=== PATIENT | female | born 1960 | race Caucasian/White ===

== ENCOUNTER → 2017-01-01 | Outpatient (CLI) | payer OTHER ==
--- NOTE | 2017-01-01 12:19 | REP ---
Digital screening bilateral mammography with CAD: History: Personal history of breast carcinoma on the left at age 39 status post left breast reconstruction and right breast reduction mammoplasty. Comparison mammography December 24, 2015, January 08, 2015, and October 19, 2013. Mammographic findings: There is silicone augmentation implant again noted in the left breast with smooth margins. There is some contour deformity but these features are unchanged. There is a surgical clip adjacent to the superior aspect of the implant. The left breast is otherwise unremarkable mammographically. The right breast shows mild pattern of background fibroglandular tissue unchanged from comparison mammography. No neodensity, spiculation or architectural distortion is seen. No suspicious microcalcification is seen. Impression: Stable BIRADS category II benign bilateral breast imaging. Repeat screening mammography recommended in 1 year. BI-RADS/ACR category 2 mammogram. Benign finding(s). Routine annual screening mammography (for women over age 40). This mammogram was interpreted with the aid of an FDA-approved computer-aided detection system. The patient states she had a clinical breast exam in December 2016. The patient letter being requested is M1.
== END ==
LOC: M WHC 09:54
PROVIDERS: ATTEND Nurse Practitioner Family
DX: Z12.31 Encounter for screening mammogram for malignant neoplasm of breast (principal); Z85.3 Personal history of malignant neoplasm of breast

== ENCOUNTER → 2017-01-01 | Outpatient (CLI) | payer OTHER ==
--- NOTE | 2017-01-04 09:39 | DEXA ---
AP SPINE L1 - L4 1.034 -1.3 -1.4 LT FEMUR TOTAL 0.982 -0.2 -0.2 RT FEMUR TOTAL 0.952 -0.4 -0.4 TOTAL BODY TOTAL OTHER DUAL FEMUR FRAX* ASSESSMENT Risk factors: History of fracture (adult.) Secondary osteoporosis ( premature menopause.) 10 year probability of fracture Major osteoporotic fracture 9.5 % Hip fracture 0.3 % COMMENTS: Normal bone densitometry of the hips. There is low bone density of the spine. The density of the spine has decreased 12.4% since initial exam on 03/19/2006. The spine density has increased 0.6% since the most recent exam on 01/08/2015. The density of the left hip has decreased 8.9% since the initial exam on 2005. The density of the left hip has decreased 2.9% since the most recent exam on . The density of the right hip has decreased 10.5% since the initial exam on 03/19. The density of the right hip has decreased 2.3% since the most recent exam on . FOLLOW-UP: Recommendation for the next bone density exam: 2 years. CASSIE
== END ==
LOC: M WHC 09:57
PROVIDERS: ATTEND Internal Medicine
DX: M81.8 Other osteoporosis without current pathological fracture (principal)

== ENCOUNTER → 2017-12-31 | Outpatient (REF) | payer OTHER ==
[2017-12-31 14:26] LABS: CA15-3 ANTIGEN 15.9 U/ML (<32.4)
== END ==
LOC: M LAB REF 12:40
DX: C50.919 Malignant neoplasm of unspecified site of unspecified female breast (principal)

== ENCOUNTER → 2018-02-14 | Outpatient (CLI) | payer OTHER | LOC: M WHC 11:30 | DX: Z12.31 Encounter for screening mammogram for malignant neoplasm of breast (principal); Z85.3 Personal history of malignant neoplasm of breast | CPT/HCPCS: 77067 ==

== ENCOUNTER → 2018-11-23 | Outpatient (CLI) | payer OTHER ==
[~2018-11-23] MED LIST: ATOR40TA75 PO; CALC500C16 PO; CALC500T49 PO; COQ1200C3 PO
--- NOTE | 2018-11-23 15:25 | REP ---
Digital diagnostic unilateral right breast mammography with CAD and focused right breast sonography: History: Right breast lump. Comparison mammography February 14, 2018, January 01, 2017, and December 24, 2015. Mammographic findings: A skin marker is affixed to the skin at the site of the palpable lump and routine views of the right breast are augmented by true ML and magnified views. These demonstrate the breast parenchyma remains heterogeneously dense in a pattern which may inhibit the sensitivity of mammography. Parenchyma is unchanged. No abnormal soft tissue density is seen in the area of the palpable lump. The breast parenchyma in this region is fatty replaced. No spiculation, mass, architectural distortion or microcalcification is seen. Sonographic findings: The right breast is scanned from 3 o'clock to 5 o'clock through the region of the palpable lump. Mildly heterogeneous fibroglandular background echotexture is seen. No cyst or mass is observed. No acoustic shadowing is seen. Impression: BIRADS category 1 negative right breast imaging findings. Clinical follow-up is advised. This negative report should not dissuade one from biopsy of a palpable lump depending on its clinical characteristics. BIRADS 1: BI-RADS/ACR category 1 mammogram. Negative Mammogram. This mammogram was interpreted with the aid of an FDA-approved computer-aided detection system. The patient states she had a clinical breast exam in November 2018. The patient letter being requested is m# 2. Electronically Signed by Alexy Linda MD 11/23/2018 05:31 P
== END ==
LOC: M RAD 10:20
PROVIDERS: ATTEND Internal Medicine Hematology & Oncology
DX: N60.31 Fibrosclerosis of right breast (principal)
CPT/HCPCS: 76642; 77065; G0279

== ENCOUNTER 2021-02-12 02:51 | Observation (INO) | payer OTHER ==
[~2021-02-12] VITALS: Ht 170.2 cm; Wt 93.0 kg
[~2021-02-12 02:51] MED LIST changes: +FISH1000 PO
[2021-02-12 03:56] LABS: BASO # 0.1 10^3/uL (0.0-0.2); BASO % 0.8 % (0.0-1.0); EOS # 0.2 10^3/uL (0.0-0.5); EOS % 2.3 % (0.0-3.0); HEMATOCRIT 40.7 % (36.0-47.0); HEMOGLOBIN 13.2 g/dl (12.0-15.5); LYMPH % 48.2 % (24.0-44.0); MEAN CORPUSCULAR HEMOGLOBIN 28.9 pg (27.0-33.0); MEAN CORPUSCULAR HGB CONC 32.4 g/dl (32.0-36.5); MEAN CORPUSCULAR VOLUME 89.1 fl (80.0-96.0); MONO # 0.8 10^3/uL (0.0-0.8); MONO % 7.9 % (2.0-8.0); NEUTROPHILS % 39.2 % (36.0-66.0); PLATELET COUNT, AUTOMATED 224 10^3/uL (150-450); RED BLOOD COUNT 4.57 10^6/uL (4.00-5.40)
[2021-02-12 03:57] LABS: WHITE BLOOD COUNT 10.3 10^3/uL (4.0-10.0)
[2021-02-12 04:09] LABS: ALBUMIN 3.8 GM/DL (3.2-5.2); ALT/SGPT 54 U/L (12-78); BILIRUBIN,DIRECT < 0.1 MG/DL (0.0-0.2); BILIRUBIN,TOTAL 0.3 MG/DL (0.2-1.0); LIPASE 147 U/L (73-393)
[2021-02-12] MEDS ORDERED: ONDANSETRON 4MG/2ML VIAL IV ONE (06:30)
[2021-02-12] MEDS ORDERED: NS 1,000 ML IV ONE (06:30)
[2021-02-12 06:49] LABS: ETHYL ALCOHOL (ETHANOL) < 0.003 % (0.000-0.010)
--- NOTE | 2021-02-12 07:28 | REPVR ---
PROCEDURE INFORMATION: Exam: CT Head Without Contrast Exam date and time: 02/12/2021 6:30 AM Age: 60 years old Clinical indication: Dizziness; Additional info: Dizziness, vomiting TECHNIQUE: Imaging protocol: Computed tomography of the head without contrast. Radiation optimization: All CT scans at this facility use at least one of these dose optimization techniques: automated exposure control; mA and/or kV adjustment per patient size (includes targeted exams where dose is matched to clinical indication); or iterative reconstruction. COMPARISON: No relevant prior studies available. FINDINGS: Brain: There is no acute intracranial hemorrhage or mass effect. Mild diffuse volume loss is within the range of normal for patient age. There are small vessel ischemic changes within the periventricular and subcortical white matter, but the normal choudhary/white matter delineation is maintained. Cerebral ventricles: No ventriculomegaly. Paranasal sinuses: Visualized sinuses are unremarkable. No fluid levels. Mastoid air cells: Visualized mastoid air cells are well aerated. Bones/joints: Unremarkable. No acute fracture. Soft tissues: Unremarkable. IMPRESSION: No acute hemorrhage or edema. Electronically signed by: Deneen Li On 02/12/2021 07:27:59 AM
[2021-02-12 08:39] LABS: AMPHETAMINES LEVEL URINE NEGATIVE (NEGATIVE); BARBITURATES URINE NEGATIVE (NEGATIVE); BENZODIAZEPINES URINE NEGATIVE (NEGATIVE); CANNABINOIDS URINE NEGATIVE (NEGATIVE); COCAINE METABOLITE URINE NEGATIVE (NEGATIVE); METHADONE URINE NEGATIVE (NEGATIVE); OPIATES URINE NEGATIVE (NEGATIVE); PHENCYCLIDINE URINE NEGATIVE (NEGATIVE)
[2021-02-12] MEDS ORDERED: ACETAMINOPHEN 500 MG TAB PO ONE (09:20)
[2021-02-12] MEDS ORDERED: METOCLOPRAMIDE INJ 10MG/2ML VIAL (J2765 PER 1) IV ONE (10:00)
--- NOTE | 2021-02-12 13:49 | HPEPDOC ---
[facility] Medical History & Physical Date of Admission Feb 12, 2021 Date of Service: Feb 12, 2021 History and Physical CHIEF COMPLAINT: Dizziness HISTORY OF PRESENT ILLNESS: 60-year-old female history of hyperlipidemia who presents with a three-week history of dizziness associated with nausea and vomiting. Tells me over the past 3 weeks symptoms were mild they were triggered by lying down in bed especially on the left side as well as rising too quickly from bed and rolling over to the left side. peak of the symptoms stents last for a few minutes and then was away it feels as though the room was spinning she feels unsteady as though the room is spinning and worried about falling and its associated with nausea and v omiting. She felt her symptoms were worse over the past 24 hours which prompted her to come to the ED. She tells me although she doesn't remember herself her reminds her that she has had similar symptoms as far back as 20-30 years ago. In the emergency department physical therapy vestibular therapy specialist saw the patient performed Hawkins-Hallpike maneuver and noted horizontal nystagmus on left side Richi maneuver was attempted patient felt a little better but was also nauseous she was given Reglan with improvement of her symptoms. Neurologist supervisor stone was contacted and recommended patient be observed with another session with vestibular therapy as well as continued vestibular therapy in the outpatient setting regimented meclizine and Valium. PAST MEDICAL/SURGICAL HISTORY: Hyperlipidemia Remote history of breast cancer follows annually with the breast center Left mastectomy with reconstruction expanders in place Hysterectomy SOCIAL HISTORY: Endorses alcohol use socially only Denies tobacco use Denies illicit drug use FAMILY HISTORY: Reviewed and none contributory to this admission ALLERGIES: Please see below. REVIEW OF SYSTEMS: 10 point review of systems complete all negative otherwise stated in HPI Denies dysuria. Endorses urinary frequency. HOME MEDICATIONS: Please see below. PHYSICAL EXAMINATION: Constitutional: Awake and alert, in no apparent distress ENT: Sclera are clear. Mucosa is moist. Respiratory: Lungs CTA bilaterally. No respiratory distress. Cardiovascular: Regular rate and rhythm Gastrointestinal: Abdomen is soft, non distended, non tender, BS present. Musculoskeletal: No lower extremity edema. Skin: No visible rashes mental status: The patient is awake, alert, oriented to name, location, and date. Cranial nerves: Pupils are equal, round, and reactive to light. Extraocular muscles intact. Visual killian full bilaterally. Smile is symmetrical. Tongue is midline. Intact sensation on both sides of face. Motor: At least 4+/5 in both upper and lower extremities without any drifting. Sensory: Intact to sensation bilaterally. Reflexes: Symmetrical, non-hyperreflexic. Not pathological. Gait reported to be unstable, I did not test this LABORATORY DATA: See below. IMAGING: See chart MICROBIOLOGY: Please see below. ASSESSMENT/PLAN 6-year-old female history of hyperlipidemia presents with a three-week history of intermittent dizziness associated with positioning as well as nausea and vomiting suspected to have benign paroxysmal positional vertigo admitted for observation for vestibular therapy and medical management of symptoms. # Suspected benign paroxysmal positional vertigo: Vestibular therapy done in the ED [place]-Hallpike reveals horizontal nystagmus on the left. Richi maneuver attempted patient became nauseous. Ramiro discussed the case with neurologist Dr. Ashton who recommended continued vestibular therapy for another day inpatient as well as after discharge. Also recommended meclizine and Valium. Initially recommended MRI but was informed it is incompatible with her expanders. Patient will be referred to the neurology clinic at time of discharge. Scheduled IV Reglan, and IV Zofran as needed. Salt free diet. # Hyperlipidemia: Continue home medication. # Possible UTI: no dysuria. Elevated wbc in UA. UCx pending. Will treat with Bactrim. # DVT prophylaxis: Elicianox A Twin Hospitalist Vital Signs Vital Signs Date Time Temp Pulse Resp B/P (MAP) Pulse Ox O2 Delivery O2 Flow Rate FiO2 02/12/21 12:00 76 134/74 (94) 97 02/12/21 04:00 Room Air 02/12/21 03:55 18 02/12/21 03:07 97.2 Laboratory Data Labs 24H Laboratory Tests 2 02/12/21 03:06: Immature Granulocyte % (Auto) 1.6, Neutrophils (%) (Auto) 39.2, Lymphocytes (%) (Auto) 48.2H, Monocytes (%) (Auto) 7.9, Eosinophils (%) (Auto) 2.3, Basophils (%) (Auto) 0.8, Neutrophils # (Auto) 4.0, Lymphocytes # (Auto) 5.0, Monocytes # (Auto) 0.8, Eosinophils # (Auto) 0.2, Basophils # (Auto) 0.1, Nucleated Red Blood Cells % (auto) 0.0 02/12/21 03:45: Total Bilirubin 0.3, Direct Bilirubin < 0.1, Aspartate Amino Transf (AST/SGOT) 32, Alanine Aminotransferase (ALT/SGPT) 54, Alkaline Phosphatase 61, Total Protein 7.0, Albumin 3.8, Albumin/Globulin Ratio 1.2, Lipase 147, Ethyl Alcohol Level < 0.003 02/12/21 04:18: POC Glucose (Misc Panel) 144H, POC Sodium (Misc Panel) 143, POC Potassium (Misc Panel) 3.9, POC Chloride (Misc Panel) 103, POC Total CO2 (Misc Panel) 24.0, POC Blood Urea Nitrogen (Misc Panel 17, POC Ionized Calcium (Misc Panel) 5.0, POC Creatinine (Misc Panel) 0.8, POC Hematocrit (Misc Panel) 39.0 02/12/21 08:00: Urine Color YELLOW, Urine Appearance HAZY, Urine pH 7.0, Urine Specific [place] 1.015, Urine Protein NEGATIVE, Urine Glucose (UA) NEGATIVE, Urine Ketones NEGATIVE, Urine Blood 1+H, Urine Nitrite NEGATIVE, Urine Bilirubin NEGATIVE, Urine Urobilinogen 0.2, Urine Leukocyte Esterase 1+H, Urine WBC (Auto) 48H, Urine RBC (Auto) 3, Urine Hyaline Casts (Auto) 1, Urine Bacteria (Auto) 1+H, Urine Squamous Epithelial Cells 0, Urine Mucus (Auto) SMALL, Urine Sperm (Auto) , Urine Opiates Screen NEGATIVE, Urine Methadone Screen NEGATIVE, Urine Barbiturates Screen NEGATIVE, Urine Phencyclidine Screen NEGATIVE, Urine Amphetamines Screen NEGATIVE, Urine Benzodiazepines Screen NEGATIVE, Urine Cocaine Metabolite Screen NEGATIVE, Urine Cannabinoids Screen NEGATIVE 02/12/21 13:13: CBC/BMP Laboratory Tests 02/12/21 03:06 Microbiology Microbiology 02/12/21 Urine Culture, Received Pending Home Medications Scheduled Atorvastatin Calcium (Atorvastatin Calcium) 40 Mg Tab, 40 MG PO QHS Calcium Carbonate (Calcium) 500 Mg Tab.chew, 500 MG PO QHS [place]-3 Fatty Acids/Fish Oil (Fish Oil 1,000 mg Capsule) 1 Each Capsule, 1,000 MG PO QHS Ubidecarenone (Co Q10) 200 Mg Cap, 200 MG PO QHS Allergies Coded Allergies: prochlorperazine (Verified Allergy, Intermediate, 11/15/18) A-FIB/CHADSVASC A-FIB History Current/History of A-Fib/PAF?: No YOUSEF,CHUN Chapin MD Feb 12, 2021 13:49
[2021-02-12 14:00] LABS: RSV AMPLIFICATION NEGATIVE (NEGATIVE)
[2021-02-12] MEDS ORDERED: MAALOX 30 ML SUSP *UDC PO PRN (14:45)
[2021-02-12] MEDS ORDERED: MOM 30ML SUSPENSION UDC PO PRN (14:45)
[2021-02-12] MEDS ORDERED: ONDANSETRON 4MG/2ML VIAL IV PRN (14:45)
[2021-02-12] MEDS ORDERED: PILL CUTTER 1 EACH XX PRN (15:00)
[2021-02-12] MEDS ORDERED: diazePAM 2 MG TAB PO ONE (15:00)
[2021-02-12 16:20] VITALS: BP 174/95
[2021-02-12] MEDS: BACTRIM 160MG/800MG DS TAB PO SCH (16:45)
[2021-02-12] MEDS: METOCLOPRAMIDE INJ 10MG/2ML VIAL (J2765 PER 1) IV SCH ×2 (16:46→22:17)
[2021-02-12] MEDS: MECLIZINE 25 MG TABLET PO SCH (20:00)
[2021-02-12] MEDS: ATORVASTATIN 20 MG TAB PO SCH (20:00)
[2021-02-12 22:00] VITALS: BP 174/103
[2021-02-12] MEDS: ACETAMINOPHEN TAB 650MG DOSE (2X325MG) PO PRN (22:20)
[2021-02-12 22:24] VITALS: BP 140/82
[2021-02-12] MEDS ORDERED: diazePAM 2 MG TAB PO PRN (23:00)
[2021-02-13] MEDS: METOCLOPRAMIDE INJ 10MG/2ML VIAL (J2765 PER 1) IV SCH ×4 (04:52→21:55)
[2021-02-13] MEDS: ACETAMINOPHEN TAB 650MG DOSE (2X325MG) PO PRN ×3 (05:01→18:18)
[2021-02-13 05:52] LABS: HEMATOCRIT 39.1 % (36.0-47.0); HEMOGLOBIN 12.8 g/dl (12.0-15.5); MEAN CORPUSCULAR HGB CONC 32.7 g/dl (32.0-36.5); MEAN CORPUSCULAR VOLUME 88.5 fl (80.0-96.0); PLATELET COUNT, AUTOMATED 204 10^3/uL (150-450); RED BLOOD COUNT 4.42 10^6/uL (4.00-5.40); WHITE BLOOD COUNT 9.6 10^3/uL (4.0-10.0)
[2021-02-13 06:00] VITALS: BP 159/90
[2021-02-13 06:15] LABS: BLOOD UREA NITROGEN 12 MG/DL (7-18); CALCIUM LEVEL 8.7 MG/DL (8.8-10.2); CARBON DIOXIDE LEVEL 27 MEQ/L (21-32); CHLORIDE LEVEL 107 MEQ/L (98-107); CREATININE FOR GFR 0.81 MG/DL (0.55-1.30); GLOMERULAR FILTRATION RATE > 60.0 (>45); GLUCOSE, FASTING 95 MG/DL (70-100); MAGNESIUM LEVEL 2.2 MG/DL (1.8-2.4); POTASSIUM SERUM 3.7 MEQ/L (3.5-5.1); SODIUM LEVEL 140 MEQ/L (136-145)
[2021-02-13 06:16] VITALS: BP 158/100
[2021-02-13] MEDS: MECLIZINE 25 MG TABLET PO SCH ×2 (09:11→21:56)
[2021-02-13] MEDS: BACTRIM 160MG/800MG DS TAB PO SCH ×2 (09:11→21:55)
[2021-02-13] MEDS: ENOXAPARIN 40MG/0.4ML SYRINGE (J1650 PER 10MG) SC SCH (09:11)
--- NOTE | 2021-02-13 09:52 | IPNPDOC ---
Text Note Date of Service The patient was seen on 02/13/21. NOTE Subjective: Patient seen and examined this morning. Tells me she feels better than yesterday she was able to walk to the bathroom but still feels a little dizzy and her symptoms haven't completely resolved. She still feels some nausea but she hasn't vomited since yesterday. She states that the medications are helping and she was able to sleep a little last night, her dizziness isn't as bad as it was. No acute overnight events reported to me. Objective: Constitutional: Awake and alert, in no apparent distress ENT: Sclera are clear. Mucosa is moist. Respiratory: Lungs CTA bilaterally. No respiratory distress. Cardiovascular: Regular rate and rhythm Gastrointestinal: Abdomen is soft, non distended, non tender, BS present. Neurologic: No focal neurological deficit. Left-sided horizontal nystagmus when moving her head to the left. Musculoskeletal: No lower extremity edema. Skin: No visible rashes Assessment/plan: 60-year-old female history of hyperlipidemia presents with a three-week history of intermittent dizziness associated with positioning as well as nausea and vomiting suspected to have benign paroxysmal positional vertigo admitted for observation for vestibular therapy and medical management of symptoms. # Suspected benign paroxysmal positional vertigo: Vestibular therapy done in the ED [place]-Hallpike reveals horizontal nystagmus on the left. Richi maneuver attempted patient became nauseous. Neurologist Dr. Ashton recommended continued vestibular therapy inpatient as well as after discharge. Also recommended meclizine and Valium. Initially recommended MRI but was informed it is incompatible with her expanders. Patient will be referred to the neurology clinic at time of discharge. Scheduled IV Reglan, and IV Zofran as needed. Salt free diet. Patient was seen again today by physical therapy for vestibular rehabilitation and they recommended one more day of inpatient vestibular therapy. Overall improved from yesterday. # Possible UTI: no dysuria. Elevated wbc in UA. UCx contaminated. Will treat with Bactrim appears to be working leukocytosis resolved today. Complete 5 day course. # Hyperlipidemia: Continue home medication. # Obesity: BMI 32. Complicates care # DVT prophylaxis: Lovenox A Yousef Hospitalist VS,Shanie, I+O VS, [place], I+O Laboratory Tests 02/13/21 05:35 Vital Signs Date Time Temp Pulse Resp B/P (MAP) Pulse Ox O2 Delivery O2 Flow Rate FiO2 02/13/21 06:16 158/100 (119) 02/13/21 06:00 96.8 71 16 95 Room Air I&O- Last 24 Hours up to 6 AM 02/13/21 06:00 Intake Total 1660 ml Balance 1660 ml CHUN FARR MD Feb 13, 2021 09:52
[2021-02-13 14:33] VITALS: BP 144/88
[2021-02-13 21:33] VITALS: BP 159/76
[2021-02-13] MEDS: ATORVASTATIN 20 MG TAB PO SCH (21:56)
[2021-02-14] MEDS: METOCLOPRAMIDE INJ 10MG/2ML VIAL (J2765 PER 1) IV SCH ×2 (03:26→08:20)
[2021-02-14 06:56] VITALS: BP 156/96
[2021-02-14] MEDS: BACTRIM 160MG/800MG DS TAB PO SCH (08:20)
[2021-02-14] MEDS: ENOXAPARIN 40MG/0.4ML SYRINGE (J1650 PER 10MG) SC SCH (08:20)
[2021-02-14] MEDS: MECLIZINE 25 MG TABLET PO SCH (08:20)
[2021-02-14 09:10] LABS: HEMOGLOBIN 13.5 g/dl (12.0-15.5); MEAN CORPUSCULAR HEMOGLOBIN 28.7 pg (27.0-33.0); MEAN CORPUSCULAR HGB CONC 32.1 g/dl (32.0-36.5); MEAN CORPUSCULAR VOLUME 89.2 fl (80.0-96.0); PLATELET COUNT, AUTOMATED 199 10^3/uL (150-450); RED BLOOD COUNT 4.71 10^6/uL (4.00-5.40); WHITE BLOOD COUNT 6.4 10^3/uL (4.0-10.0)
[2021-02-14 09:34] LABS: BLOOD UREA NITROGEN 13 MG/DL (7-18); CARBON DIOXIDE LEVEL 28 MEQ/L (21-32); CHLORIDE LEVEL 107 MEQ/L (98-107); CREATININE FOR GFR 0.88 MG/DL (0.55-1.30); GLOMERULAR FILTRATION RATE > 60.0 (>45); GLUCOSE, FASTING 89 MG/DL (70-100); POTASSIUM SERUM 4.1 MEQ/L (3.5-5.1); SODIUM LEVEL 142 MEQ/L (136-145)
[2021-02-14 09:35] LABS: CALCIUM LEVEL 8.7 MG/DL (8.8-10.2)
[2021-02-14] MEDS ORDERED: MECL-86 PO (10:37)
[2021-02-14] MEDS ORDERED: BACTDSTA PO (10:37)
--- NOTE | 2021-02-14 10:39 | IPNPDOC ---
Text Note Date of Service The patient was seen on 02/14/21. NOTE Subjective: Patient seen and examined this morning. She's feeling a lot better her dizziness is much better she was able to walk around the hallway and doesn't feel like she is going to fall at her nausea and vomiting have completely resolved. She worked again with therapy for vestibular therapy today and they informed me that he feels she is safe to go home and follow-up with outpatient vestibular therapy. Patient agrees with the plan. Objective: Constitutional: Awake and alert, in no apparent distress ENT: Sclera are clear. Mucosa is moist. Respiratory: Lungs CTA bilaterally. No respiratory distress. Cardiovascular: Regular rate and rhythm Gastrointestinal: Abdomen is soft, non distended, non tender, BS present. Neurologic: No focal neurological deficit. Musculoskeletal: No lower extremity edema. Skin: No visible rashes Assessment/plan: 60-year-old female history of hyperlipidemia presents with a three-week history of intermittent dizziness associated with positioning as well as nausea and vomiting suspected to have benign paroxysmal positional vertigo admitted for observation for vestibular therapy and medical management of symptoms. # Suspected benign paroxysmal positional vertigo: Vestibular therapy done in the ED [place]-Hallpike reveals horizontal nystagmus on the left. Richi maneuver attempted patient became nauseous. Neurologist Dr. Ashton recommended continued vestibular therapy inpatient as well as after discharge. Also recommended meclizine and Valium. Initially recommended MRI but was informed it is incompatible with her expanders. Patient will be referred to the neurology clinic at time of discharge. Scheduled IV Reglan, and IV Zofran as needed. Salt free diet. Patient was seen again by physical therapy for vestibular rehab ilitation and they recommended one more day of inpatient vestibular therapy which was completed today on day of discharge therapy felt the patient was safe to go home and get outpatient vestibular therapy. Patient was referred to neurology at time of discharge. # Possible UTI: no dysuria. Elevated wbc in UA. UCx contaminated. Will treat with Bactrim appears to be working leukocytosis resolved today. Complete 5 day course. 3 more days were prescribed at time of discharge. # Hyperlipidemia: Continue home medication. # Obesity: BMI 32. Complicates care # DVT prophylaxis: Lovenox A Yousef Hospitalist [place]ison CISNEROS, I+O VS, [place], I+O Laboratory Tests 02/14/21 09:00 Vital Signs Date Time Temp Pulse Resp B/P (MAP) Pulse Ox O2 Delivery O2 Flow Rate FiO2 02/14/21 06:56 98.1 72 20 156/96 (116) 97 Room Air I&O- Last 24 Hours up to 6 AM 02/14/21 06:00 Intake Total 780 ml Balance 780 ml CHUN FARR MD Feb 14, 2021 10:39
== END 2021-02-14 13:10 | disposition home or self-care (01) ==
LOC: M ED 02:51 → M MS5PR 02:52 → ENRESERV 14:53
PROVIDERS: ADMIT Family Medicine; ATTEND Family Medicine
DX: R42 Dizziness and giddiness (principal); R11.2 Nausea with vomiting, unspecified; R82.90 Unspecified abnormal findings in urine; E78.5 Hyperlipidemia, unspecified; E66.9 Obesity, unspecified; Z68.32 Body mass index [BMI] 32.0-32.9, adult; Z85.3 Personal history of malignant neoplasm of breast; Z90.12 Acquired absence of left breast and nipple; Z79.899 Other long term (current) drug therapy; Z88.8 Allergy status to other drugs, medicaments and biological substances
CPT/HCPCS: 36415; 70450; 80047; 80048; 80076; 80307; 81001; 82077; 83690; 83735; 85025; 85027; 87086; 87631; 93041; 96361; 96372; 96374; 96375; 96376; 97112; 97116; 97161; 97530; 99285; J1650; J2405; J2765

== ENCOUNTER → 2021-02-27 | Outpatient (REF) | payer OTHER ==
[~2021-02-27] MED LIST changes: +BACTDSTA PO; +MECL-86 PO
== END ==
LOC: M LAB REF 16:36
PROVIDERS: ATTEND Physician Assistant Medical
DX: N39.0 Urinary tract infection, site not specified (principal)

== ENCOUNTER 2021-03-07 20:09 | Emergency (ER) | payer OTHER ==
[~2021-03-07] VITALS: Ht 170.2 cm; Wt 94.1 kg
--- NOTE | 2021-03-07 21:37 | REPVR ---
PROCEDURE INFORMATION: Exam: XR Left Wrist Exam date and time: 03/07/2021 8:43 PM Age: 60 years old Clinical indication: Other: Trauma TECHNIQUE: Imaging protocol: XR Left wrist. Views: 3 or more views. COMPARISON: No relevant prior studies available. FINDINGS: Bones/joints: Normal. Soft tissues: Normal. IMPRESSION: No acute findings. Electronically signed by: Sterling Ferguson On 03/07/2021 21:37:32 PM
[2021-03-07 22:42] VITALS: BP 170/82
== END 2021-03-07 22:45 | disposition home or self-care (01) ==
LOC: M ED 20:09
DX: S60.212A Contusion of left wrist, initial encounter (principal); X58.XXXA Exposure to other specified factors, initial encounter; Y92.512 Supermarket, store or market as the place of occurrence of the external cause; Y93.9 Activity, unspecified; Y99.9 Unspecified external cause status; Z85.3 Personal history of malignant neoplasm of breast; Z79.899 Other long term (current) drug therapy; Z88.8 Allergy status to other drugs, medicaments and biological substances

== ENCOUNTER → 2021-08-23 | Outpatient (REF) | payer OTHER ==
[2021-08-23 16:57] LABS: APPEARANCE, URINE CLOUDY (CLEAR); BACTERIA, URINE AUTO 1+ (NEGATIVE); BILIRUBIN, URINE AUTO NEGATIVE (NEGATIVE); BLOOD, URINE BLOOD 2+ (NEGATIVE); COLOR, URINE YELLOW (YELLOW); GLUCOSE, URINE (UA) AUTO NEGATIVE (NEGATIVE); KETONE, URINE AUTO NEGATIVE (NEGATIVE); LEUKOCYTE ESTERASE, URINE AUTO 3+ (NEGATIVE); MUCUS, URINE SMALL (NEGATIVE); NITRITE, URINE AUTO NEGATIVE (NEGATIVE); PROTEIN, URINE AUTO NEGATIVE (NEGATIVE); RBC, URINE AUTO 2 /HPF (0-3); SPECIFIC GRAVITY URINE AUTO 1.008 (1.002-1.035); SQUAMOUS EPITHELIAL CELL UR AU 1 /HPF (0-6); UROBILINOGEN, URINE AUTO 0.2 mg/dL (0.0-2.0); WBC, URINE AUTO TNTC /HPF (0-3)
== END ==
LOC: M LAB REF 15:54
PROVIDERS: ATTEND Physician Assistant Medical
DX: R30.0 Dysuria (principal)

== ENCOUNTER → 2021-11-03 | Outpatient (REF) | payer OTHER ==
[2021-11-03 21:25] LABS: APPEARANCE, URINE CLEAR (CLEAR); BACTERIA, URINE AUTO 1+ (NEGATIVE); BILIRUBIN, URINE AUTO NEGATIVE (NEGATIVE); BLOOD, URINE BLOOD NEGATIVE (NEGATIVE); COLOR, URINE STRAW (YELLOW); GLUCOSE, URINE (UA) AUTO NEGATIVE (NEGATIVE); KETONE, URINE AUTO NEGATIVE (NEGATIVE); LEUKOCYTE ESTERASE, URINE AUTO 1+ (NEGATIVE); NITRITE, URINE AUTO NEGATIVE (NEGATIVE); PROTEIN, URINE AUTO NEGATIVE (NEGATIVE); RBC, URINE AUTO 0 /HPF (0-3); SPECIFIC GRAVITY URINE AUTO 1.005 (1.002-1.035); SQUAMOUS EPITHELIAL CELL UR AU 0 /HPF (0-6); UROBILINOGEN, URINE AUTO 0.2 mg/dL (0.0-2.0); WBC, URINE AUTO 12 /HPF (0-3)
== END ==
LOC: M LAB REF 21:07
PROVIDERS: ATTEND Physician Assistant Medical
DX: N39.0 Urinary tract infection, site not specified (principal)

== ENCOUNTER 2022-03-08 12:09 | Emergency (ER) | payer OTHER ==
[~2022-03-08] VITALS: Ht 170.2 cm; Wt 93.2 kg
[~2022-03-08 12:09] MED LIST changes: +LOSA50TA5
[2022-03-08] MEDS ORDERED: diazePAM 10MG/2ML SYRINGE (J3360 PER 5MG) IV ONE (13:10)
[2022-03-08] MEDS ORDERED: ONDANSETRON 4MG 2ML VIAL IV ONE (13:10)
[2022-03-08] MEDS ORDERED: VALI5TAB PO (14:04)
[2022-03-08] MEDS ORDERED: ONDA4TAB6 PO (14:04)
[2022-03-08] MEDS ORDERED: vestibular PT (14:08)
[2022-03-08 14:55] VITALS: BP 150/84
== END 2022-03-08 14:58 | disposition home or self-care (01) ==
LOC: M ED 12:09
DX: H81.10 Benign paroxysmal vertigo, unspecified ear (principal); H92.10 Otorrhea, unspecified ear; E78.5 Hyperlipidemia, unspecified; Z85.3 Personal history of malignant neoplasm of breast; Z88.8 Allergy status to other drugs, medicaments and biological substances; Z79.899 Other long term (current) drug therapy
CPT/HCPCS: 96374; 96375; 99284; J2405; J3360

== ENCOUNTER → 2022-03-23 | Outpatient (CLI) | payer OTHER ==
[~2022-03-23] MED LIST changes: +FLON1SPR; -LOSA50TA5; +LOSA50TA5 PO; +ONDA4TAB6 PO; +VALI5TAB PO; +VITMTA PO; +vestibular PT
== END ==
LOC: M LABSMTC 09:22
PROVIDERS: ATTEND Anesthesiology
DX: Z01.812 Encounter for preprocedural laboratory examination (principal)

== ENCOUNTER → 2022-05-13 | Outpatient (REF) | payer OTHER ==
[2022-05-13 17:10] LABS: APPEARANCE, URINE MANUAL CLEAR (CLEAR); COLOR, URINE MANUAL YELLOW (YELLOW)
[2022-05-13 17:11] LABS: BILIRUBIN, URINE MANUAL NEGATIVE (NEGATIVE); BLOOD URINE MANUAL NEGATIVE (NEGATIVE); GLUCOSE, URINE (UA) MANUAL NEGATIVE (NEGATIVE); KETONE, URINE MANUAL NEGATIVE (NEGATIVE); LEUKOCYTE ESTERASE, URINE MAN NEGATIVE (NEGATIVE); NITRITE, URINE MANUAL NEGATIVE (NEGATIVE); PROTEIN, URINE MANUAL NEGATIVE (NEGATIVE); UROBILINOGEN, URINE MANUAL NORMAL (NORMAL)
== END ==
LOC: M LAB REF 16:17
PROVIDERS: ATTEND Physician Assistant
DX: N39.0 Urinary tract infection, site not specified (principal)

== ENCOUNTER → 2022-05-26 | Outpatient (REF) | payer OTHER ==
[2022-05-26 22:13] LABS: APPEARANCE, URINE MANUAL CLEAR (CLEAR); COLOR, URINE MANUAL LT YELLOW (YELLOW)
[2022-05-26 22:14] LABS: BILIRUBIN, URINE MANUAL NEGATIVE (NEGATIVE); BLOOD URINE MANUAL NEGATIVE (NEGATIVE); GLUCOSE, URINE (UA) MANUAL NEGATIVE (NEGATIVE); KETONE, URINE MANUAL NEGATIVE (NEGATIVE); LEUKOCYTE ESTERASE, URINE MAN POSITIVE (NEGATIVE); NITRITE, URINE MANUAL NEGATIVE (NEGATIVE); PROTEIN, URINE MANUAL TRACE mg/dL (NEGATIVE); UROBILINOGEN, URINE MANUAL NORMAL (NORMAL)
[2022-05-26 23:01] LABS: BACTERIA, URINE SMALL AMOUNT; HYALINE CAST, URINE NONE SEEN /lpf (0-1); RBC, URINE 0-1 /hpf (0-3); SQUAMOUS EPITHELIAL CELL URINE SMALL AMOUNT /hpf (SMALL AMT); WBC, URINE 40-50 /hpf (0-3)
[2022-05-26 23:02] LABS: AMORPHOUS SEDIMENT, URINE SMALL AMOUNT (NEGATIVE)
== END ==
LOC: M LAB REF 21:38
PROVIDERS: ATTEND Physician Assistant Medical
DX: N39.0 Urinary tract infection, site not specified (principal)

== ENCOUNTER → 2022-06-16 | Outpatient (REF) | payer OTHER ==
[~2022-06-16] MED LIST changes: +CIPR500T39
[2022-06-16 19:19] LABS: APPEARANCE, URINE MANUAL CLEAR (CLEAR); BILIRUBIN, URINE MANUAL NEGATIVE (NEGATIVE); BLOOD URINE MANUAL NEGATIVE (NEGATIVE); COLOR, URINE MANUAL LT YELLOW (YELLOW); GLUCOSE, URINE (UA) MANUAL NEGATIVE (NEGATIVE); KETONE, URINE MANUAL NEGATIVE (NEGATIVE); LEUKOCYTE ESTERASE, URINE MAN NEGATIVE (NEGATIVE); NITRITE, URINE MANUAL NEGATIVE (NEGATIVE); PROTEIN, URINE MANUAL NEGATIVE (NEGATIVE); SPECIFIC GRAVITY,URINE MANUAL 1.015 (1.002-1.035); UROBILINOGEN, URINE MANUAL NORMAL (NORMAL)
== END ==
LOC: M SMT 17:41 → M LAB REF 17:41
PROVIDERS: ATTEND Physician Assistant
DX: N30.90 Cystitis, unspecified without hematuria (principal)

== ENCOUNTER → 2022-07-12 | Outpatient (CLI) | payer OTHER ==
[~2022-07-12] MED LIST changes: +OMEG10002 PO
== END ==
LOC: M LABSMTC 09:27
PROVIDERS: ATTEND Anesthesiology
DX: Z01.812 Encounter for preprocedural laboratory examination (principal); Z11.52 Encounter for screening for COVID-19

== ENCOUNTER 2022-07-15 06:40 | Day surgery (SDC) | payer OTHER ==
[~2022-07-15] VITALS: Ht 170.2 cm; Wt 92.0 kg
[~2022-07-15 06:40] MED LIST changes: +NS 1,000 ML IV ONE
[2022-07-15] MEDS ORDERED: propofoL 200 MG/20 ML VIAL As Ordered ONE (07:21)
[2022-07-15] MEDS ORDERED: LIDOCAINE 2% 100MG/5ML SDV (FOR ANES.) As Ordered ONE (07:21)
[2022-07-15 08:43] VITALS: BP 181/89
== END 2022-07-15 08:43 | disposition home or self-care (01) ==
LOC: M OPP 06:40
PROVIDERS: ATTEND Internal Medicine Gastroenterology
DX: Z12.11 Encounter for screening for malignant neoplasm of colon (principal); K63.5 Polyp of colon; I10 Essential (primary) hypertension; E78.00 Pure hypercholesterolemia, unspecified; H81.10 Benign paroxysmal vertigo, unspecified ear; Z85.3 Personal history of malignant neoplasm of breast; Z92.3 Personal history of irradiation; Z92.21 Personal history of antineoplastic chemotherapy; Z79.02 Long term (current) use of antithrombotics/antiplatelets; Z79.899 Other long term (current) drug therapy; Z88.8 Allergy status to other drugs, medicaments and biological substances

== ENCOUNTER 2024-10-08 12:23 | Observation (INO) | payer OTHER ==
[~2024-10-08] VITALS: Ht 170.2 cm; Wt 96.0 kg
[~2024-10-08 12:23] MED LIST changes: -NS 1,000 ML IV ONE; +ONDA-282 PO; -ONDA4TAB6 PO
[2024-10-08] MEDS ORDERED: ISOVUE-370 76% 100ML VIAL As Ordered ONE (12:54)
[2024-10-08 12:59] LABS: BASO # 0.1 10^3/uL (0.0-0.2); BASO % 0.8 % (0.0-1.0); EOS # 0.1 10^3/uL (0.0-0.5); EOS % 1.4 % (0.0-3.0); HEMATOCRIT 39.2 % (36.0-47.0); HEMOGLOBIN 13.3 g/dl (12.0-15.5); LYMPH # 2.6 10^3/uL (1.5-5.0); LYMPH % 30.4 % (24.0-44.0); MEAN CORPUSCULAR HEMOGLOBIN 29.8 pg (27.0-33.0); MEAN CORPUSCULAR HGB CONC 33.9 g/dl (32.0-36.5); MEAN CORPUSCULAR VOLUME 87.9 fl (80.0-96.0); MONO # 0.6 10^3/uL (0.0-0.8); MONO % 6.8 % (2.0-8.0); NEUTROPHILS # 5.1 10^3/uL (1.5-8.5); PLATELET COUNT, AUTOMATED 214 10^3/uL (150-450); RED BLOOD COUNT 4.46 10^6/uL (4.00-5.40); WHITE BLOOD COUNT 8.4 10^3/uL (4.0-10.0)
[2024-10-08 13:13] LABS: INR 0.91; PARTIAL THROMBOPLASTIN TIME 24.4 SECONDS (24.8-34.2); PROTHROMBIN TIME 12.6 SECONDS (12.5-14.5)
[2024-10-08 13:21] LABS: CK-MB VALUE MASS < 1.0 NG/ML (<3.6); LIPASE 40 U/L (12-53)
[2024-10-08 13:23] LABS: ALBUMIN 4.1 G/DL (3.2-5.2); ALKALINE PHOSPHATASE 68 U/L (35-104); ALT/SGPT 46 U/L (7.0-40); AST/SGOT 22 U/L (<34); BILIRUBIN,DIRECT 0.2 MG/DL (<0.4); BILIRUBIN,TOTAL 0.6 MG/DL (0.3-1.2); BLOOD UREA NITROGEN 17 MG/DL (9-23); CALCIUM LEVEL 9.8 MG/DL (8.3-10.6); CARBON DIOXIDE LEVEL 25 MMOL/L (20-31); CHLORIDE LEVEL 103 MMOL/L (98-107); CREATININE FOR GFR 0.75 MG/DL (0.55-1.30); GLOMERULAR FILTRATION RATE > 60.0 (>45); GLUCOSE, FASTING 140 MG/DL (74-106); MAGNESIUM LEVEL 1.6 MG/DL (1.8-2.4); PHOSPHORUS LEVEL 2.3 MG/DL (2.4-5.1); SODIUM LEVEL 141 MMOL/L (136-145); TOTAL PROTEIN 7.2 G/DL (5.7-8.2)
[2024-10-08 13:24] LABS: CPK CREATINE PHOSPHOKINASE 146 U/L (34-145); MB/CK RELATIVE INDEX 0.68 (< OR =4)
[2024-10-08 13:25] LABS: FREE T4 1.34 NG/DL (0.89-1.76)
[2024-10-08 13:26] LABS: THYROID STIMULATING HORMONE 2.209 uIU/ML (0.55-4.78)
[2024-10-08] MEDS: POTASSIUM CHLORIDE 10MEQ SR TABLET PO ONE ×2 (14:49→22:00)
[2024-10-08 14:50] LABS: CK-MB VALUE MASS < 1.0 NG/ML (<3.6)
[2024-10-08] MEDS: NS 500 ML IV ONE ×2 (14:50→15:20)
[2024-10-08 14:57] LABS: CPK CREATINE PHOSPHOKINASE 120 U/L (34-145); MB/CK RELATIVE INDEX 0.83 (< OR =4)
[2024-10-08] MEDS: ONDANSETRON 4MG 2ML VIAL IV ONE (17:50)
[2024-10-08] MEDS: MECLIZINE 25 MG TABLET PO ONE (19:45)
[2024-10-08] MEDS: ACETAMINOPHEN 325 MG TAB PO ONE (20:00)
[2024-10-08] MEDS ORDERED: CO Q100C2 PO (20:58)
[2024-10-08] MEDS ORDERED: LORA-622 PO (20:58)
[2024-10-08] MEDS ORDERED: MULTTAB61 PO (20:58)
[2024-10-08] MEDS ORDERED: HOME MED LIST COMPLETE! XX SCH (21:00)
[2024-10-08] MEDS: ATORVASTATIN 20 MG TAB PO SCH (21:00)
[2024-10-08] MEDS: CALCIUM CARBONATE 500 MG CHEW U/D PO SCH (21:00)
[2024-10-08] MEDS ORDERED: METOCLOPRAMIDE INJ 10MG/2ML VIAL IV PRN (21:20)
[2024-10-08] MEDS ORDERED: MOM 30ML SUSPENSION UDC PO PRN (21:20)
[2024-10-08] MEDS: MAG SULF 1GM/100ML (MAG RUN) 1 GM in IV 1 EA IV SCH (22:00)
[2024-10-09 00:55] VITALS: BP 153/82; TEMP 96.7; O2SAT 96
[2024-10-09 04:00] VITALS: BP_SYST 138; BP_SYST 149; BP_DIAS 76; BP_DIAS 95; TEMP 96.7; TEMP 96.9; O2SAT 98
[2024-10-09 04:13] VITALS: BP_SYST 140; BP_SYST 142; BP_DIAS 89; BP_DIAS 93; BP_DIAS 95
[2024-10-09] MEDS: ACETAMINOPHEN 325 MG TAB PO PRN (05:45)
[2024-10-09] MEDS: MECLIZINE 12.5 MG TAB PO PRN (05:46)
[2024-10-09 06:51] LABS: HEMATOCRIT 39.6 % (36.0-47.0); HEMOGLOBIN 13.2 g/dl (12.0-15.5); MEAN CORPUSCULAR HEMOGLOBIN 29.4 pg (27.0-33.0); MEAN CORPUSCULAR HGB CONC 33.3 g/dl (32.0-36.5); MEAN CORPUSCULAR VOLUME 88.2 fl (80.0-96.0); PLATELET COUNT, AUTOMATED 226 10^3/uL (150-450); RED BLOOD COUNT 4.49 10^6/uL (4.00-5.40); WHITE BLOOD COUNT 10.1 10^3/uL (4.0-10.0)
[2024-10-09 07:33] LABS: ALBUMIN 3.6 G/DL (3.2-5.2); ALKALINE PHOSPHATASE 62 U/L (35-104); ALT/SGPT 41 U/L (7.0-40); AST/SGOT 20 U/L (<34); BILIRUBIN,TOTAL 0.6 MG/DL (0.3-1.2); BLOOD UREA NITROGEN 11 MG/DL (9-23); CARBON DIOXIDE LEVEL 28 MMOL/L (20-31); CHLORIDE LEVEL 106 MMOL/L (98-107); CREATININE FOR GFR 0.76 MG/DL (0.55-1.30); GLOMERULAR FILTRATION RATE > 60.0 (>45); GLUCOSE, FASTING 90 MG/DL (74-106); MAGNESIUM LEVEL 2.1 MG/DL (1.8-2.4); SODIUM LEVEL 143 MMOL/L (136-145); TOTAL PROTEIN 6.6 G/DL (5.7-8.2)
[2024-10-09 08:39] VITALS: BP 140/89
[2024-10-09] MEDS: LOSARTAN 50MG TABLET PO SCH (08:39)
[2024-10-09] MEDS: LORATADINE 10 MG TAB PO SCH (08:39)
[2024-10-09] MEDS: hydroCHLOROthiazide 12.5 MG CAPSULE PO SCH (08:40)
[2024-10-09] MEDS: ENOXAPARIN 40MG/0.4ML SYRINGE (J1650 PER 10MG) SC SCH (08:41)
[2024-10-09] MEDS ORDERED: MECL-136 PO (10:56)
[2024-10-09 12:00] VITALS: BP 114/58; TEMP 97.9; O2SAT 95
[2024-10-09] MEDS ORDERED: OMEGA-3 1000MG CAPSULE PO SCH (21:00)
== END 2024-10-09 14:30 | disposition home or self-care (01) ==
LOC: EDBD 12:23 → M ED 12:23 → M ED INP 12:24 → M MS4PR 10-09 00:55
PROVIDERS: ADMIT Student in an Organized Health Care Education/Training Program; ATTEND Student in an Organized Health Care Education/Training Program
DX: H81.10 Benign paroxysmal vertigo, unspecified ear (principal); I95.1 Orthostatic hypotension; R11.2 Nausea with vomiting, unspecified; E87.8 Other disorders of electrolyte and fluid balance, not elsewhere classified; E87.6 Hypokalemia; I45.81 Long QT syndrome; E83.42 Hypomagnesemia; I10 Essential (primary) hypertension; E78.5 Hyperlipidemia, unspecified; N20.0 Calculus of kidney; Z85.3 Personal history of malignant neoplasm of breast; Z90.12 Acquired absence of left breast and nipple; Z90.79 Acquired absence of other genital organ(s); Z98.890 Other specified postprocedural states; Z87.891 Personal history of nicotine dependence; Z79.899 Other long term (current) drug therapy; Z88.8 Allergy status to other drugs, medicaments and biological substances
CPT/HCPCS: 36415; 70450; 70496; 70498; 70544; 70551; 71045; 74177; 80047; 80048; 80053; 80076; 82550; 82553; 83690; 83735; 84100; 84439; 84443; 84484; 85025; 85027; 85610; 85730; 93005; 93041; 94760; 96361; 96365; 96375; 96376; 97112; 97161; 99285; J2405; J3475; Q9967

== ENCOUNTER 2024-11-27 01:11 | Emergency (ER) | payer OTHER ==
[~2024-11-27] VITALS: Ht 170.2 cm; Wt 95.5 kg
[~2024-11-27 01:11] MED LIST changes: +CO Q100C2 PO; +LORA-622 PO; +MECL-136 PO; +MULTTAB61 PO
[2024-11-27 01:15] VITALS: TEMP 96.6
[2024-11-27] MEDS ORDERED: AMLO1TAB24 (01:22)
[2024-11-27] MEDS: NS (Normal Saline) 0.9% 1,000 ML IV ONE (02:55)
[2024-11-27 03:00] LABS: BLOOD UREA NITROGEN 21 MG/DL (9-23); CALCIUM LEVEL 9.1 MG/DL (8.3-10.6); CARBON DIOXIDE LEVEL 29 MMOL/L (20-31); CHLORIDE LEVEL 103 MMOL/L (98-107); CREATININE FOR GFR 0.85 MG/DL (0.55-1.30); GLOMERULAR FILTRATION RATE 76.5 (>45); GLUCOSE, FASTING 111 MG/DL (74-106); HEMOGLOBIN 13.9 g/dl (12.0-15.5); MEAN CORPUSCULAR HEMOGLOBIN 29.4 pg (27.0-33.0); MEAN CORPUSCULAR HGB CONC 33.1 g/dl (32.0-36.5); MEAN CORPUSCULAR VOLUME 88.8 fl (80.0-96.0); PLATELET COUNT, AUTOMATED 223 10^3/uL (150-450); POTASSIUM SERUM 3.8 MMOL/L (3.5-5.1); RED BLOOD COUNT 4.73 10^6/uL (4.00-5.40); SODIUM LEVEL 141 MMOL/L (136-145); WHITE BLOOD COUNT 16.2 10^3/uL (4.0-10.0)
[2024-11-27 03:19] LABS: CK-MB VALUE MASS < 1.0 NG/ML (<3.6)
[2024-11-27 03:20] LABS: CPK CREATINE PHOSPHOKINASE 103 U/L (34-145); MB/CK RELATIVE INDEX 0.97 (< OR =4)
[2024-11-27] MEDS ORDERED: ISOVUE-370 76% 100ML VIAL As Ordered ONE (03:57)
[2024-11-27 06:52] VITALS: BP 151/76; O2SAT 97
[2024-11-27 07:10] LABS: KETONE, URINE AUTO RFX NEGATIVE (NEGATIVE); LEUKOCYTE ESTERASE UR AUTO RFX NEGATIVE (NEGATIVE); NITRITE, URINE AUTO RFX NEGATIVE (NEGATIVE); RBC, URINE AUTO RFX 0 /HPF (0-3); SQUAM EPITHELIAL CELL UR AURFX 0 /HPF (0-6); WBC, URINE AUTO RFX 4 /HPF (0-3)
== END 2024-11-27 06:57 | disposition home or self-care (01) ==
LOC: M ED 01:11
DX: A08.39 Other viral enteritis (principal); R10.9 Unspecified abdominal pain; R11.0 Nausea; I10 Essential (primary) hypertension; E78.5 Hyperlipidemia, unspecified; Z85.3 Personal history of malignant neoplasm of breast; Z88.8 Allergy status to other drugs, medicaments and biological substances; Z79.899 Other long term (current) drug therapy
CPT/HCPCS: 71045; 74177; 80048; 81001; 82550; 82553; 83735; 84484; 85027; 87486; 87581; 87633; 87798; 93005; 96360; 96361; 99284; Q9967

== ENCOUNTER → 2024-11-30 | Outpatient (REF) | payer OTHER ==
[~2024-11-30] MED LIST changes: +AMLO1TAB24
== END ==
LOC: M LAB REF 13:45
PROVIDERS: ATTEND Internal Medicine
DX: R53.83 Other fatigue (principal)

== ENCOUNTER → 2025-06-06 | Outpatient (CLI) | payer OTHER ==
[~2025-06-06] MED LIST changes: +LORA-1164 PO; -LORA-622 PO
== END ==
LOC: M SLEEP 20:00
PROVIDERS: ATTEND Physician Assistant
DX: R40.0 Somnolence (principal)

== ENCOUNTER → 2025-06-12 | Outpatient (REF) | payer OTHER ==
[2025-06-12 18:39] LABS: IRON (FE) 92.0 UG/DL (50-170); PERCENT SATURATION 28.8 % (13.2-45.0)
[2025-06-15 19:18] LABS: LYME TOTAL ANTIBODY CIA <= 0.90 Index (<=0.90)
== END ==
LOC: M LAB REF 17:36
PROVIDERS: ATTEND Physician Assistant Medical
DX: R53.83 Other fatigue (principal); R51.9 Headache, unspecified

== ENCOUNTER → 2025-07-04 | Outpatient (REF) | payer OTHER ==
[~2025-07-04] MED LIST changes: -BACTDSTA PO; +SULF-8 PO
== END ==
LOC: M LAB REF 12:01
PROVIDERS: ATTEND Physician Assistant
DX: J02.9 Acute pharyngitis, unspecified (principal)

== ENCOUNTER → 2025-07-06 | Outpatient (REF) | payer OTHER ==
[~2025-07-06] MED LIST changes: +BACTDSTA PO; -SULF-8 PO
== END ==
LOC: M LAB REF 12:03
PROVIDERS: ATTEND Physician Assistant
DX: B34.9 Viral infection, unspecified (principal)